=== PATIENT | male | born 1990 | race Hispanic/Latino ===

== ENCOUNTER 2018-09-07 20:36 | Emergency (ER) | payer SELFPAY ==
[~2018-09-07] VITALS: Ht 167.6 cm; Wt 65.8 kg
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
[2018-09-08] MEDS ORDERED: LIDOCAINE 5% PATCH TP ONE
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
[2018-09-08] MEDS ORDERED: ROBAXIN-750750 MG PO (00:13)
[2018-09-08] MEDS ORDERED: MOTRIN200 MG PO (00:13)
[2018-09-08 00:23] VITALS: BP 124/62
== END 2018-09-08 00:30 | disposition home or self-care (01) ==
LOC: ER 20:36
DX: S29.011A Strain of muscle and tendon of front wall of thorax, initial encounter (principal); S00.83XA Contusion of other part of head, initial encounter; M54.2 Cervicalgia; V43.52XA Car driver injured in collision with other type car in traffic accident, initial encounter; Y92.488 Other paved roadways as the place of occurrence of the external cause
CPT/HCPCS: 70450; 71045; 72125; 99283